=== PATIENT | male | born 1995 | race Hispanic/Latino ===

== ENCOUNTER 2024-06-05 01:00 | Emergency (ER) | payer SELFPAY ==
--- NOTE | 2024-06-05 04:40 | DOWNTIME ---
There was a [employer] Downtime on 06/05/2024 from 0100 to 06/06/2023 at 0420 . Downtime documentation of patient's care, including medication administrations, has been reconciled in the electronic record per guidelines. Refer to the
patient's paper chart under the miscellaneous tab to see printed paper medication records and downtime forms.
--- NOTE | 2024-06-05 04:55 | ED.GENMED ---
History of Present Illness
General
Chief Complaint: Skin Surface Trauma
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
Exam Limitations: clinical condition
Nursing documentation reviewed up to this point in time: agreed with
History of Present Illness
History of Present Illness:
Patient presents to the emergency department with a significant wound to the back of his neck. He states that he was drinking this evening and fell backwards sustaining an injury on his neck that is approximately 9 x 6 x 4 cm. Patient denies any
fell playing. He is accompanied by his father.
Review of Systems
Review of Systems
Unable to obtain full review of systems at this time due to: due to acuity
All Other Systems: Not applicable
Constitutional: Reports no symptoms
EENT: Reports no symptoms
Respiratory: Reports no symptoms
Cardiac: Reports no symptoms
ABD/GI: Reports no symptoms
: Reports no symptoms
Musculoskeletal: Reports no symptoms
Skin: Reports no symptoms
Neurological: Denies dizzy, headache or weakness
Endocrine: Reports no symptoms
Hematologic/Lymphatic: Reports bleeding
Psychiatric: Reports anxiety
Phy Exam
General Physical Exam
General Presentation: moderate distress
General age: appears stated age
General Skin: warm
General Habitus: normal
General Mental: appears intoxicated
General Hydration: appears well hydrated
ENT Exam
ENT Exam: EOMI
Cardiovascular Exam
Cardiovascular Exam: regular rate/rhythm and no edema
Neurological Exam
Neurological Exam: alert and oriented x3
Skin Exam
Skin Exam: normal color, warm/dry and laceration (Approximately 9 x 4 x 6 cm in the posterior neck with hematoma present)
Psychiatric Exam
Psychiatric Exam: normal mood/affect
Course
Orders/Labs/Results
Orders:
Orders
06/05/24
CT Head W/o Iv Contrast Urgent
CT Neck W/o Iv Contrast Urgent
Reason For Exam: fall, large laceration to back of head and neck
06/05/24 02:05
Type+Screen Routine
BBK Wristband Number:
Complete Blood Count/With Diff Routine
Comprehensive Metabolic Panel Routine
Protime/PTT Routine
06/05/24 02:20
ABO2 Routine
BBK Wristband Number:
Associate notified that ABO2 has been ordered: [id number]
Date: 06/05/24
Time: 02:20
Battery Assembler Dry Cell ID: [id number]
Abnormal Lab Results
06/05/24
02:05
WBC 13.1 H 10^3/uL
(4.8-10.8)
MCH 31.2 H pg
(27.0-31.0)
Plt Count 407 H 10^3/uL
(130-400)
Abs Immat Gran (auto) 0.1 H 10^3/uL
(0-0.05)
Absolute Lymphs (auto) 5.6 H 10^3/uL
(1.2-3.4)
Absolute Monos (auto) 1.4 H 10^3/uL
(0.1-0.6)
Monocytes % 10.3 H %
(1.7-9.3)
Glucose 122 H mg/dl
(70-99)
AST 68 H U/L
(17-59)
ALT 124 H U/L
(0-50)
Total Protein 8.8 H g/dl
(6.3-8.2)
06/05/24 02:05
06/05/24 02:05
*Pulse Oximetry
Patient hypoxic: no
*Critical Care Note
Total Time (30-74mins, 75-104mins- exclusive of procedures): 55 (Critical care statement: A total of 55 minutes of critical care time was provided for this patient. This time is separate from time utilized to perform the aforementioned documented
procedures. Aggregate critical care time includes only time during which I was engaged in work directl)
Update Note
Update Note:
CT HEAD
IMPRESSION:
No acute hemorrhage, herniation, or hydrocephalus.
No calvarial fracture.
The visualized paranasal sinuses and mastoid air cells are clear.
CT NECK
IMPRESSION:
Laceration and likely hematoma within the posterior soft tissues of the neck measuring approximately 4 x 9.3 x 5.9 cm. Trace subcutaneous emphysema within the right paraspinal musculature. Hematoma likely as intramuscular component. Multiple
areas of linear high density within the hematoma, for example 1.6 cm linear structure (series 2 one image 32), and smaller hyperdense linear structures measuring up to 1 cm (series 203 image 75), may represent retained foreign bodies. Smaller
punctate hyperdensity measuring 1 mm (series 201 image 37), near the skin surface.
No enlarged or necrotic lymph nodes.
No suspicious lytic or sclerotic lesions within the skull base or cervical spine. Likely chronic right distal clavicular fracture.
Case finalized on Jun 05 2024 2:53AM ET
Upon arrival, wound was bleeding profusely. I was able to whipstitch using 3-0 nylon. This approximation slowed down the bleeding considerably. Patient received 2 large-bore IVs and a primary survey for occult trauma was performed. 4n patient
was deemed stable, IV fluids hanging, and bleeding had stopped due to the whipstitch, patient was sent over for CT scan. Upon return to the emergency department patient was still stable. Preliminary review of the CAT scan by myself showed no
obvious occult injury. I did reach out to the doctor trauma doctor at [facility]. Dr. Valentine Muir excepted patient for immediate transfer to the emergency department in the trauma bay. Patient agreed to transfer and transportation was
arranged. Patient received 2 g of Ancef and tetanus immunization. We reviewed the transfer paperwork with the patient and his dad using the plate stacker hand phone. Dad was able to sign the consent. Dad had no questions. Patient was probably picked up
by outside ambulance transport company and discharged in stable condition.
ED Attending Note
-
Portions of this chart may have been created with voice recognition software.� Occasional wrong word or��sound alike� substitutions may have occurred due to the inherent limitations of voice recognition software.
Discharge Plan
Departure
Patient Disposition: Acute Care Hospital
Discharge Problem:
Blunt trauma of neck, Alcohol intoxication
Instructions: Wound Care (DC), Laceration Repair With Stitches (DC)
Referrals:
UNKNOWN - PT DOES,NOT KNOW [Family Provider] -
Hospital Transfer
Other hospital: [facility]
I certify that the patient requires transfer: Yes
Discussed case with accepting physician: Dr. Valentine Cochran
Reason for transfer: higher level of care, availability of service and specialties available
Interventions
Interventions:
*Nursing Disposition Last Done: 06/05/24 03:30
Discharge Date and Time
Discharge Date/Time: 06/05/24 03:30
Print Language: AUSTRIAN
[2024-06-05 05:00] LABS: APTT 32.2 Sec (23.4-35.0); INR 1.04; PT 13.9 Sec (11.4-14.6)
[2024-06-05 05:03] LABS: ALT (SGPT) 124 U/L (0-50); AST (SGOT) 68 U/L (17-59); Albumin 4.9 g/dl (3.5-5.0); Alkaline Phosphatase 117 U/L (38-126); Blood Urea Nitrogen 12 mg/dl (9-20); Carbon Dioxide 22 mmol/L (22-30); Chloride 102 mmol/L (98-107); Glucose 122 mg/dl (70-99); Potassium 4.3 mmol/L (3.5-5.1); Sodium 142 mmol/L (135-145); Total Bilirubin 0.4 mg/dl (0.2-1.3); Total Protein 8.8 g/dl (6.3-8.2); eGFR > 60.00
[2024-06-05 05:04] LABS: % Basophils 0.5 % (0-2); % Eosinophils 1.1 % (0-6); % Immature Granulocytes 0.4 % (0-0.5); % Monocytes 10.3 % (1.7-9.3); % Neutrophils 44.7 % (42.2-75.2); Absolute Basophils 0.1 10^3/uL (0-0.2); Absolute Eosinophils 0.2 10^3/uL (0-0.7); Absolute Immature Granulocytes 0.1 10^3/uL (0-0.05); Absolute Lymphocytes 5.6 10^3/uL (1.2-3.4); Absolute Monocytes 1.4 10^3/uL (0.1-0.6); Absolute Neutrophils 5.8 10^3/uL (1.4-6.5); Hematocrit 46.5 % (39.0-52.0); Mean Corp Hgb Conc. 34.4 g/dL (33.0-37.0); Mean Corpuscular Hgb 31.2 pg (27.0-31.0); Mean Corpuscular Volume 90.6 fL (80.0-94.0); Mean Platelet Volume 9.4 fL (7.4-10.4); Nucleated Red Blood Cells % 0 % (-); Platelet Count 407 10^3/uL (130-400); Red Blood Cell Count 5.13 10^6/uL (4.70-6.10); Red Cell Dist. Width 11.8 % (11.5-14.5); White Blood Cell Count 13.1 10^3/uL (4.8-10.8)
== END 2024-06-05 03:30 | disposition short-term general hospital (02) ==
LOC: EMR 01:00
PROVIDERS: EMERGENCY PHYSICIAN Student in an Organized Health Care Education/Training Program
DX: S11.89XA Other open wound of other specified part of neck, initial encounter (principal); T79.7XXA Traumatic subcutaneous emphysema, initial encounter; W19.XXXA Unspecified fall, initial encounter; F10.129 Alcohol abuse with intoxication, unspecified; Y90.9 Presence of alcohol in blood, level not specified; Z23 Encounter for immunization
CPT/HCPCS: 99291; 96374; 90471; 70450; 70490; 80053; 85025; 85610; 85730; 86850; 86900; 86901